=== PATIENT | female | born 1965 | race Two or more races ===

== ENCOUNTER 2019-08-22 18:32 | Emergency (ER) | payer BC, OTHER ==
[~2019-08-22] VITALS: Ht 165.1 cm; Wt 86.2 kg
[2019-08-22 23:13] VITALS: BP 129/74
[2019-08-23] MEDS ORDERED: cefTRIAXone SOD 1,000 MG VL IM ONE
[2019-08-23] MEDS ORDERED: TETANUS-DIPTH-ACEL PERTUSSIS 0.5ML SYRG IM ONE
[2019-08-23] MEDS ORDERED: IBUPROFEN 800 MG TAB PO ONE (00:15)
[2019-08-23] MEDS ORDERED: LIDOCAINE 1% HCL (LOCAL ANESTH.) INJ 20ML MDV IJ ONE (01:30)
== END 2019-08-23 00:21 | disposition home or self-care (01) ==
LOC: ER 18:32
DX: S61.210A Laceration without foreign body of right index finger without damage to nail, initial encounter (principal); W54.0XXA Bitten by dog, initial encounter; Y93.89 Activity, other specified; Y99.8 Other external cause status; Y92.89 Other specified places as the place of occurrence of the external cause
CPT/HCPCS: 12001; 73140; 90471; 90715; 96372; 99283; J0696; J2001